=== PATIENT | male | born 1945 | race Caucasian/White ===

== ENCOUNTER 2021-11-18 21:12 | Emergency (ER) | payer BC, MEDICAID, MEDICARE ==
[2021-11-18] MEDS: cefTRIAXone 2 GM in Sodium Chloride 0.9% 50 ML IV ONE (23:44)
[2021-11-18] MEDS: Sodium Chloride 0.9% 500 ML IV ONE (23:45)
== END 2021-11-19 00:45 | disposition home or self-care (01) ==
LOC: FB.ED 21:12
DX: L03.116 Cellulitis of left lower limb (principal); L03.115 Cellulitis of right lower limb; L02.416 Cutaneous abscess of left lower limb; L02.415 Cutaneous abscess of right lower limb; I25.10 Atherosclerotic heart disease of native coronary artery without angina pectoris; Z95.1 Presence of aortocoronary bypass graft; Z95.0 Presence of cardiac pacemaker
CPT/HCPCS: 36415; 80053; 83605; 85025; 85379; 87040; 93005; 93010; 96365; 99282; 99283-25; J0696; J3490; J7040

== ENCOUNTER 2022-10-19 06:16 | Day surgery (SDC) | payer MEDICARE ==
[~2022-10-19 06:16] MED LIST: Lactated Ringers 1,000 ML IV SCH; Sodium Chloride 0.9% 10 ML Syringe FLUSH PRN
[2022-10-19] MEDS ORDERED: Propofol 200 MG/20 ML SDV IV ONE (06:17)
[2022-10-19] MEDS ORDERED: Midazolam 1 MG/ML 2 ML SDV IV ONE (06:17)
[2022-10-19] MEDS ORDERED: Ondansetron 4 MG/2 ML SDV IVPUSH ONE (06:17)
[2022-10-19] MEDS ORDERED: ePHEDrine 50 MG/ML SDV IV ONE (06:17)
[2022-10-19] MEDS ORDERED: fentaNYL 100 MCG/2 ML SDV IV ONE (06:17)
[2022-10-19] MEDS ORDERED: Ketorolac 30 MG/ML SDV IVPUSH ONE (06:17)
[2022-10-19] MEDS ORDERED: ceFAZolin 2 GM Vial IVPUSH ONE (07:15)
[2022-10-19] MEDS ORDERED: ceFAZolin 2 GM in Sodium Chloride 0.9% 100 ML IV ONE (07:15)
[2022-10-19] MEDS ORDERED: Lidocaine 1% with EPINEPHrine 1:100,000 20 ML MDV INJECT ONE (08:00)
[2022-10-19] MEDS ORDERED: Bupivacaine 0.5% 30 ML SDV INJECT ONE (08:00)
== END 2022-10-19 12:08 | disposition home or self-care (01) ==
LOC: FB.SDS 06:16
PROVIDERS: ATTEND Surgery
DX: K40.30 Unilateral inguinal hernia, with obstruction, without gangrene, not specified as recurrent (principal); D17.6 Benign lipomatous neoplasm of spermatic cord; K66.8 Other specified disorders of peritoneum; Z79.899 Other long term (current) drug therapy
CPT/HCPCS: 00830; 49507; 88302; 88304; 88305; C1781; J0690; J1885; J2250; J2405; J2704; J3010; J3490; J7120